=== PATIENT | male | born 1995 | race Caucasian/White ===

== ENCOUNTER 2021-04-12 01:10 | Emergency (ER) | payer OTHER ==
[~2021-04-12] VITALS: Ht 172.7 cm; Wt 72.6 kg
[~2021-04-12 01:10] MED LIST: KETO10TA2 PO
[2021-04-12] MEDS ORDERED: ULTRAM50 MG PO (03:46)
[2021-04-13] MEDS ORDERED: CEFADROXIL500 MG PO (17:39)
[2021-04-13] MEDS ORDERED: ALEVE220 M1 PO (17:39)
[2021-04-13] MEDS ORDERED: PERCOCET 5-3251 EACH PO (17:39)
== END 2021-04-12 03:55 | disposition home or self-care (01) ==
LOC: ER 01:10
DX: S52.511A Displaced fracture of right radial styloid process, initial encounter for closed fracture (principal); W18.09XA Striking against other object with subsequent fall, initial encounter; Y93.89 Activity, other specified; Y92.488 Other paved roadways as the place of occurrence of the external cause; Y99.8 Other external cause status

== ENCOUNTER 2021-04-13 07:24 | Day surgery (SDC) | payer OTHER ==
[~2021-04-13 07:24] MED LIST changes: +ULTRAM50 MG PO
[2021-04-13] MEDS ORDERED: ALEVE220 M1 PO (17:39)
[2021-04-13] MEDS ORDERED: PERCOCET 5-3251 EACH PO (17:39)
[2021-04-13] MEDS ORDERED: CEFADROXIL500 MG PO (17:39)
== END 2021-04-13 18:20 | disposition home or self-care (01) ==
LOC: CIR.AMB 07:24 → ADM 08:45 → CIR.AMB 08:45
PROVIDERS: ATTEND Orthopaedic Surgery
DX: S52.571A Other intraarticular fracture of lower end of right radius, initial encounter for closed fracture (principal); Z20.822 Contact with and (suspected) exposure to COVID-19
CPT/HCPCS: 20902; C1776; 25609

== ENCOUNTER 2023-03-03 10:20 | Outpatient (CLI) | payer OTHER ==
[~2023-03-03 10:20] MED LIST changes: +ALEVE220 M1 PO; +CEFADROXIL500 MG PO; +PERCOCET 5-3251 EACH PO
== END 2023-03-03 10:31 | disposition home or self-care (01) ==
LOC: SONOGRAMA 10:20
DX: R86.8 Other abnormal findings in specimens from male genital organs (principal)

== ENCOUNTER 2024-08-17 08:48 | Emergency (ER) | payer OTHER ==
[~2024-08-17] VITALS: Ht 185.4 cm; Wt 77.1 kg
[2024-08-17] MEDS ORDERED: 0.9 % SODIUM CHLORIDE 500 ML IV ONE (09:15)
[2024-08-17] MEDS ORDERED: ACETAMINOPHEN 325 MG TABLET PO ONE (09:15)
[2024-08-17 10:44] LABS: HEMATOCRIT 44.3 % (39.0-48.0); HEMOGLOBIN 15.5 g/dL (13-16.00); MEAN CELL VOLUME 93.3 fL (80.0-100.00); MEAN CORPUSCULAR HEMOGLOBIN 32.5 pg (27.00-32.0); MEAN CORPUSCULAR HGB CONC 34.9 g/dl (32.0-36.0); RED BLOOD COUNT 4.76 M/uL (4.00-6.00); RED CELL DISTRIBUTION WIDTH 13.3 % (11.5-14.5)
[2024-08-17 11:57] LABS: PLATELET COUNT 113 K/uL (150-450)
== END 2024-08-17 13:09 | disposition home or self-care (01) ==
LOC: ER 08:50
PROVIDERS: General Practice
DX: A90 Dengue fever [classical dengue] (principal); J00 Acute nasopharyngitis [common cold]; Z91.013 Allergy to seafood; Z20.822 Contact with and (suspected) exposure to COVID-19

== ENCOUNTER 2025-06-06 15:31 | Emergency (ER) | payer OTHER ==
[~2025-06-06] VITALS: Ht 185.4 cm; Wt 77.1 kg
[2025-06-06] MEDS ORDERED: TRAMADOL HCL 50 MG TABLET PO STA (16:40)
[2025-06-06] MEDS ORDERED: TRAM1TAB98 PO (19:00)
== END 2025-06-06 19:44 | disposition home or self-care (01) ==
LOC: ER 15:31
DX: S52.502A Unspecified fracture of the lower end of left radius, initial encounter for closed fracture (principal); W17.89XA Other fall from one level to another, initial encounter; Y93.89 Activity, other specified; Y92.89 Other specified places as the place of occurrence of the external cause; Y99.9 Unspecified external cause status; Z91.013 Allergy to seafood